=== PATIENT | female | born 1940 | race Caucasian/White ===

== ENCOUNTER 2021-06-01 14:14 | Outpatient (CLI) | payer MEDICARE, SELFPAY ==
--- NOTE | ~2021-06-01 | US_ITS ---
EXAMINATION: US art doppler w press LE BI DATE: 06/01/2021 15:27 INDICATION: Neuropathy with pain, numbness and tingling to the bilateral lower limbs. Hypercholestero lemia prior smoker. TECHNIQUE: Segmental pressures and plethysmographic and Doppler waveforms of the brachial and lower e xtremity arteries were obtained. COMPARISON: None. FINDINGS: Right and left brachial artery pressures of 167 mm Hg and 147 mm Hg, respectively, are concordant (no rmal difference <= 30 mmHg). The right high thigh pressure index is 0.56 (normal > 1.2). The left hig h thigh pressure index was unable to be obtained due to inability to occlude the vessel. The right ankle-brachial index (DAYTON) is 0.42 (normal >= 0.9-1). The right great toe-brachial index (T BI) is (normal >= 0.6-0.8). The right lower extremity segmental pressure gradients are increased betw een the right noutl-qzd-ezcf popliteal artery and both the more proximal llahz-nkr-tvhq popliteal art fuad as well as the right dorsalis pedis and posterior tibial arteries which could be due to vessel wa ll calcification and artifactual elevated pressures at the hmloo-okw-gfud popliteal artery (normal gr adients <= 20-30 mmHg between adjacent levels on the same leg or the same levels on the two legs). Ar terial waveforms are biphasic throughout the arteries of the right lower limb with broadening of the systolic peaks and delayed upstrokes at the right dorsalis pedis artery. The left DAYTON is 0.65. The left TBI is 0.41. The left lower extremity segmental pressure gradients are increased between the left vrctq-hhl-jdga popliteal artery and the left posterior tibial and dorsali s pedis arteries at the left ankle. Arterial waveforms are biphasic with brisk systolic upstrokes thr oughout. IMPRESSION: 1. Bilateral arterial occlusive disease with severely decreased right and moderately decreased left A BIs. On the right there is also severe decrease in the right high thigh pressure index suggesting sig nificant more proximal right iliac disease. Reviewed, dictated and finalized at location A. INALIST IMPRESSION: 1. Bilateral arterial occlusive disease with severely decreased right and moder ately decreased left ABIs. On the right there is also severe decrease in the ri ght high thigh pressure index suggesting significant more proximal right iliac disease.
== END 2021-06-01 14:15 | disposition home or self-care (01) ==
LOC: ANHIMG 14:18
PROVIDERS: PCP Family Medicine; Visit Provider Family Medicine
DX: G62.9 Polyneuropathy, unspecified (principal); Z95.2 Presence of prosthetic heart valve; G89.29 Other chronic pain; M79.604 Pain in right leg; M79.605 Pain in left leg; R09.89 Other specified symptoms and signs involving the circulatory and respiratory systems; I73.9 Peripheral vascular disease, unspecified
CPT/HCPCS: 93923

== ENCOUNTER 2021-08-23 13:16 | Emergency (ER) | payer OTHER, SELFPAY ==
[2021-08-23] VITALS (11 sets, daily range): BP systolic 109–163; BP diastolic 51–97; PULSE 77–92; RESP 15–23; TEMP 36.1–36.2; O2SAT 93–100
--- NOTE | ~2021-08-23 | XR_ITS ---
EXAMINATION: XR chest 1V portable INDICATION: Shortness of breath TECHNIQUE: Portable AP chest at 1754 hours COMPARISON: None available FINDINGS: There are minimal airspace opacities of the lung bases. There is no pleural effusion or pne umothorax. Cardiomegaly is noted. A dual-lead cardiac pacemaker of the left chest wall ends with lead s in expected locations. Median sternotomy wires and mediastinal surgical clips are seen, likely from prior coronary artery bypass grafting. Vertebroplasty change is noted in the L3 vertebral body. IMPRESSION: 1. Minimal bibasilar airspace opacities, consistent with atelectasis versus pneumonia. Reviewed, dictated and finalized at location F. TS FITNESS AND WELLNESS DIRECTOR IMPRESSION: 1. Minimal bibasilar airspace opacities, consistent with atelectasis versus pne umonia.
--- NOTE | ~2021-08-23 | CT_ITS ---
EXAMINATION: CTA chest PE protocol DATE: 08/23/2021 19:40 INDICATION: Shortness of breath TECHNIQUE: Computed tomography angiography (CTA) of the chest was performed with 100 mL Omnipaque-350 intravenous contrast timed to evaluate the pulmonary arteries. Coronal maximum intensity projection 3D-reconstructions were created by the technologist. The dose-length product (DLP) was 213.22 mGy-cm. Automated exposure control and iterative reconstruction technique were employed. COMPARISON: None. FINDINGS: The pulmonary arteries are well-opacified. No pulmonary embolism is identified. There is se cherry emphysema. The lungs are free of acute opacities. There appears to be a small amount of mucus in the trachea. There is no pleural effusion or pneumothorax. Cardiomegaly is noted. A dual-lead cardia c pacemaker of the left chest wall ends with leads in expected locations. There is a small sliding hi atal hernia. There is mild thoracic spondylosis. IMPRESSION: 1. No pulmonary embolism or acute cardiopulmonary abnormality. 2. Severe emphysema. Reviewed, dictated and finalized at location F. E PROMOTION ANALYST
--- NOTE | 2021-08-23 14:51 | PC.NURSE ---
Patients visitor in to dept and up to desk asking for wait times, how many people are ahead, and if he should take her somewhere else. I informed this gentleman that I am unable to provide any of that information.
--- NOTE | 2021-08-23 17:05 | ECG_ITS ---
Measurements Intervals [place] Rate: 73 P: 119 ID: [id number] QRS: 49 QRSD: 93 T: 4 QT: 389 QTc: 429 Interpretive Statements SINUS RHYTHM WITH FIRST DEGREE AV BLOCK MINIMAL Q WAVES- INFERIOR LEADS BASELINE ARTIFACT- I, II, III, AVR, AVL, AVF, V1-V6 ABNORMAL ECG Electronically Signed On 08-23-2021 21:14:22 CYLINDER WORKER by Brock Woods D.O.
--- NOTE | 2021-08-23 17:15 | ED.SOB ---
HPI - SOB/Dyspnea General Chief Complaint: Shortness of Breath/Dyspnea Stated Complaint: shortness of breath Time Seen by Provider: 08/23/21 17:05 Source: patient and RN notes reviewed Mode of arrival: ambulatory Limitations: no limitations History of Present Illness HPI Narrative: This is an 81 year old female with history of pacemaker, valvular disease s/p aortic mechanical valve replacement who presents for evaluation of shortness of breath. She developed shortness of breath 3 days ago. She first noticed shortness of breath 3 days ago when she got up to get something to drink. She continues to feel short of breath and it is worse with exertion. She denies chest pain, cough, leg swelling, nausea, vomiting or dizziness. She takes coumadin for her mechanical valve and she has been therapeutic. Related Data Allergies Allergy/AdvReac Type Severity Reaction Status Date / Time No Known Allergies Allergy Verified 08/23/21 20:08 Review of Systems Review of Systems: All systems reviewed & are unremarkable except as noted in HPI and below Constitutional: Constitutional: Denies chills, Denies fever(s) and Denies weakness ENT: Reports nasal congestion and Denies sore throat Cardiovascular: Cardiovascular: Denies chest pain Respiratory: Respiratory: Denies cough, Reports dyspnea and Denies wheezing Gastrointestinal: Gastrointestinal: Denies abdominal pain, Denies diarrhea, Denies nausea and Denies vomiting [facility] Past Medical History Medical History (Updated 08/23/21 @ 22:47 by Amrita Jaramillo MD) H/O valvular heart disease Pacemaker Peripheral vascular disease Surgical History Surgical History (Updated 08/23/21 @ 22:46 by Amrita Jaramillo MD) Heart valve replaced Social History Social History (Updated 08/23/21 @ 18:31 by Amrita Jaramillo MD) Smoking status: Never smoker Exam Const: General: no acute distress and alert Orientation/consciousness: patient oriented x3 Eyes: EOM: EOMs intact bilaterally Chest: Chest palpation & inspection: normal inspection of the chest Resp: Effort & Inspection: normal respiratory effort and no retractions Auscultation: clear to auscultation bilaterally Other: able to speak in complete sentences Cardio: Rate: regular rate Rhythm: regular rhythm Heart sounds: Murmur heart sound present GI: GI Palp: Yes Soft to palpation, No Tenderness to palpation present (GI) and No Guarding due to palpation present (GI) Auscultation: normal bowel sounds Skin: General skin exam: normal color Rashes: no rashes Neuro: General: patient oriented x3, moves all extremities and CN's II-XI intact bilaterally Extrem: General: normal to inspection Psych: Mental Status: mental status grossly normal Affect: normal affect Course Reevaluation(s) Reevaluation #1: PAtient presented with shortness of breath. She was able to ambulate and maintain oxygen saturation of 100% on room air. CT shows severe emphysema. I have discussed with patient and discussed she will need to see PCP and retail asset protection specialist. She is not requiring oxygen and she is not having chest pain EKG changes. Date: 08/23/21 Time: 20:05 Vital Signs Vital signs: Vital Signs Temperature 97.2 F L 08/23/21 13:31 Pulse Rate 85 08/23/21 13:31 Respiratory Rate 18 08/23/21 13:31 Blood Pressure 109/54 L 08/23/21 13:31 Pulse Oximetry 100 08/23/21 13:31 Temperature 97 F L 08/23/21 17:09 Pulse Rate 88 08/23/21 20:40 Respiratory Rate 16 08/23/21 20:40 Blood Pressure 153/54 H 08/23/21 20:40 Pulse Oximetry 99 08/23/21 20:40 MDM - SOB/Dyspnea Lab Data Attestation: I reviewed the patient's lab results. Result diagrams: 08/23/21 17:38 08/23/21 17:38 Labs: Lab Results 08/23/21 08/23/21 08/23/21 Range/Units 17:38 17:38 17:38 WBC 9.6 (4.5-10.0) K/mm3 RBC 4.04 L (4.2-5.4) M/mm3 Hgb 13.2 (12.0-15.0) g/dL Hct 39.4 (37.0-47.0) % MCV 9
[2021-08-23 17:51] LABS: Basophils Absolute Auto 0.1 K/mm3 (0.0-0.1); Basophils Percent Auto 0.6 % (0.2-1.2); Eosinophils Absolute Auto 0.4 K/mm3 (0-0.3); Eosinophils Percent Auto 3.6 % (0-4.4); Hematocrit 39.4 % (37.0-47.0); Hemoglobin 13.2 g/dL (12.0-15.0); Immature Granulocyte Absolute 0.03 K/mm3 (0.00-0.031); Immature Granulocyte Percent A 0.3 % (0-0.5); Lymphocytes Absolute Auto 1.38 K/mm3 (0.9-3.2); Lymphocytes Percent Auto 14.3 % (18.3-44.2); Mean Corpuscular HGB Conc 33.5 g/dl (32-36); Mean Corpuscular Hemoglobin 32.7 pg (26-34); Mean Corpuscular Volume 97.5 fl (80-100); Mean Platelet Volume 9.3 fl (7.4-10.4); Monocytes Absolute Auto 0.9 K/mm3 (0.1-0.6); Monocytes Percent Auto 9.1 % (2.6-8.5); Neutrophils Absolute Auto 6.9 K/mm3 (1.3-6.7); Neutrophils Percent Auto 72.1 % (45.5-73.1); Platelet Count Result 314 k/mm3 (150-375); Red Blood Count 4.04 M/mm3 (4.2-5.4); Red Cell Distribution Width 12.4 % (11.5-14.5); White Blood Count 9.6 K/mm3 (4.5-10.0)
[2021-08-23 18:01] LABS: INR 2.5
[2021-08-23 18:02] LABS: Partial Thromboplastin Time 44.7 SECONDS (22.3-36.8)
[2021-08-23 18:17] LABS: Alanine Aminotransferase 16 U/L (4-35); Albumin Level 4.6 g/dL (3.5-5.1); Alkaline Phosphatase 77 U/L (38-126); Anion Gap 8 mmol/L (8-16); Aspartate Amino Transferase 29 U/L (14-36); Bilirubin,Total 0.8 mg/dL (0.2-1.3); Blood Urea Nitrogen 19 mg/dL (7-17); Calcium 9.9 mg/dL (8.4-10.2); Carbon Dioxide 26 mmol/L (22-30); Chloride 102 mmol/L (98-107); Estimated CRCL calculation 32 ml/min; Estimated Glomerular Filt Rate 53; Glucose 101 mg/dL (65-110); Potassium 3.8 mmol/L (3.4-5.0); Sodium 136 mmol/L (137-145)
[2021-08-23 18:28] LABS: NT Pro B Type Natriuretic Pept 1180 pg/mL (5-100); Troponin I < 0.012 ng/mL (0.000-0.034)
[2021-08-26 07:50] LABS: Alveolar/Arterial O2 Gradient 29.6 mmHg; Carboxyhemoglobin 0.5 % THb (0-2.0); Fractional Inspired Oxygen 21 %; HCO3 ABG 19.7 mEq/l (22.0-26.0); Methemoglobin ABG 0.3 %THb (0-1.5); Oxygen Content ABG 18.2 %vol (16.0-22.0); Oxygen Saturation ABG 97.6 % (95.0-100.0); Oxyhemoglobin 95.7 % THb (90.0-100.0); PCO2 ABG 25.9 mmHg (35.0-45.0); PO2 ABG 89.1 mmHg (80.0-100.0); PO2 FiO2 Ratio Arterial Blood 4.24 %; Reduced Hemoglobin 3.5 %THb (0-5.0); Total Hemoglobin 13.5 g/dL (12.0-18.0); pH ABG 7.499 (7.350-7.450)
[2021-08-26 07:51] LABS: Device ROOM AIR
== END 2021-08-23 20:19 | disposition home or self-care (01) ==
PROVIDERS: Emergency Medicine; Emergency Provider General Practice; PCP Student in an Organized Health Care Education/Training Program
DX: J43.8 Other emphysema (principal); R06.00 Dyspnea, unspecified; I38 Endocarditis, valve unspecified; I73.9 Peripheral vascular disease, unspecified; Z95.0 Presence of cardiac pacemaker; Z95.2 Presence of prosthetic heart valve; I44.0 Atrioventricular block, first degree
CPT/HCPCS: 36415; 36600; 71045; 71275; 80053; 82375; 82805; 83050; 83880; 84484; 85025; 85610; 85730; 93005; 99284; Q9967

== ENCOUNTER 2021-09-18 13:29 | Emergency (ER) | payer OTHER, SELFPAY ==
[2021-09-18] VITALS (10 sets, daily range): BP systolic 154–186; BP diastolic 61–95; PULSE 65–94; RESP 15–26; TEMP 36.6; O2SAT 96–100
--- NOTE | ~2021-09-18 | CT_ITS ---
EXAMINATION: CT brain wo con DATE: 09/18/2021 14:51 INDICATION: Dizziness. Speech difficulty. Confusion. TECHNIQUE: Computed tomography (CT) of the head was performed without intravenous contrast. The mA wa s adjusted according to patient size. Iterative reconstruction technique was employed. Exam dose: 90 8.00 mGy-cm total exam DLP. COMPARISON: None FINDINGS: Examination is mildly limited by motion artifact. Bilateral vertebral artery calcification. Bilateral carotid siphon and supraclinoid internal carotid artery calcifications. There is nonspecific diminished attenuation of the cerebral white matter, like ly due to chronic small vessel ischemic changes. No intracranial mass lesion or hemorrhage or cerebrovascular accident is detected. No midline shift o r mass effect effect. No subdural or epidural hematoma. No fracture or bone destruction of the cranial vault is detected. Included paranasal sinuses and mast oid air cells are unremarkable. IMPRESSION: Cerebral atherosclerosis and chronic small vessel ischemic changes of cerebral white mat ter No acute intracranial finding is noted. Hyperacute nonhemorrhagic cerebrovascular accident may not be detected by CT. Reviewed, dictated and finalized at Location [facility]. Reviewed, dictated and finalized at location A. IMPRESSION: Cerebral atherosclerosis and chronic small vessel ischemic changes of cerebral white matter No acute intracranial finding is noted. Hyperacute nonhemorrhagic cerebrovascular accident may not be detected by CT.
--- NOTE | ~2021-09-18 | CT_ITS ---
EXAMINATION: CTA chest PE protocol DATE: 09/18/2021 16:49 INDICATION: Shortness of breath for 2 weeks TECHNIQUE: Computed tomography angiography (CTA) of the chest was performed with 100 mL Omnipaque-350 intravenous contrast timed to evaluate the pulmonary arteries. Coronal maximum intensity projection 3D-reconstructions were created by the technologist. Automated exposure control and iterative reconst ruction technique were employed. Exam dose: 252.61 mGy-cm total exam DLP. COMPARISON: 09/18/2021 portable AP chest 08/23/2021 CT pulmonary scan, reported negative for pulmonary embolism FINDINGS: The examination is limited due to motion, with suboptimal evaluation of the peripheral pulm onary arteries. There is moderate contrast opacification of the central pulmonary arteries without ev idence of central pulmonary embolus. Left-sided dual-lead pacemaker device with leads in right atrium and right ventricle. There is extensive calcification of the thoracic aorta, great vessels and coronary arteries. Status post sternotomy and aortic valve replacement. Heart size is within normal range. No pericardial or pleural effusion. Prominent emphysematous changes of the lungs. No pulmonary infiltrate or consolidation. Normal morphology of the adrenal glands. Small sliding hiatal hernia. Status post vertebroplasty at mild L2 compression fracture IMPRESSION: No central pulmonary embolus COPD Status post sternotomy and aortic valve replacement Small sliding hiatal hernia Status post vertebroplasty at L2 compression fracture Reviewed, dictated and finalized at Location [facility]. Reviewed, dictated and finalized at location A.
--- NOTE | ~2021-09-18 | XR_ITS ---
XR chest 1V portable 09/18/2021 14:21 Indication: Cough and dizziness Procedure: AP portable chest Comparison: 08/23/2021 Findings: Status post median sternotomy for CABG. Pacemaker leads are stable. Borderline heart size. No focal air space disease, pulmonary edema, pleural effusion or suspected pneumothorax. The lungs ar e hyperinflated which is consistent with, but not diagnostic of chronic obstructive pulmonary disease . Impression: 1: No acute cardiopulmonary disease. Reviewed, dictated and finalized at location A. Impression: 1: No acute cardiopulmonary disease.
--- NOTE | 2021-09-18 14:05 | ECG_ITS ---
Measurements Intervals [place] Rate: 70 P: 83 RI: 206 QRS: 34 QRSD: 96 T: 53 QT: 398 QTc: 431 Interpretive Statements SINUS RHYTHM BORDERLINE FIRST-DEGREE AV BLOCK BORDERLINE ECG COMPARED TO ECG 08/23/2021 17:41:39 NO SIGNIFICANT CHANGES Electronically Signed On 09-18-2021 15:26:38 CDT by Delta Sánchez M.D.
--- NOTE | 2021-09-18 14:27 | ED.SOB ---
HPI - SOB/Dyspnea General Chief Complaint: Shortness of Breath/Dyspnea Stated Complaint: SOB Time Seen by Provider: 09/18/21 13:54 Source: RN notes reviewed History of Present Illness HPI Narrative: Patient presents emergency department from home for shortness of breath. Patient states he has been having intermittent shortness of breath for the past 2 weeks. States that shortness of breath appears to be worse with activity and movement improved with rest he also notes intermittent dizziness where she feels like the room is spinning states that currently she does not have any dizziness she denies any fevers or chills, chest pain, abdominal pain, nausea or vomiting, numbness or tingling in the extremities or any other symptoms. Denies any cough Related Data Allergies Allergy/AdvReac Type Severity Reaction Status Date / Time No Known Allergies Allergy Verified 08/23/21 20:08 Review of Systems Review of Systems: Gen.: Denies fevers or chills Eyes: Denies eye pain or visual change ENT: Denies congestion Respiratory: Denies shortness of breath or cough CV: Denies chest pain or palpitations GI: Denies abdominal pain nausea, emesis or diarrhea Musculoskeletal: Denies back pain or muscle pain Neuro: Denies numbness, tingling, weakness or focal weakness Skin: Denies rash Except as documented, all other systems reviewed and negative [facility] Past Medical History Medical History H/O valvular heart disease Pacemaker Peripheral vascular disease Surgical History Surgical History (Updated 08/23/21 @ 22:46 by Amrita Jaramillo MD) Heart valve replaced Social History Social History Smoking status: Never smoker Exam Narrative: APPEARANCE: Anxious in appearance, nontoxic, resting in bed EYES: EOMI HEENT: Normocephalic, atraumatic, OMM RESPIRATORY: No respiratory distress Clear to auscultation bilaterally with no rhonchi wheezing or rales. CARDIOVASCULAR: Regular rate and rhythm without murmurs rubs or gallops. ABDOMINAL: Soft, nontender, nondistended, no rebound or guarding MUSCULOSKELETAl: Moves all extremities. No clubbing, cyanosis or edema. NEURO: Awake and alert. Following commands, speech normal, no focal deficits SKIN:: Warm, dry. No rashes lesions or abrasions PSYCHIATRIC: Normal affect/mood, Course Course Emergency Course: Patient states she is feeling much better at this time able to get up and ambulate in ED with pulse ox staying in the 90s no difficulty Reviewed old records the patient was seen for similar back in August with negative work-up Discussed with patient results of workup and diagnosis. Discussed need for follow-up with primary care, proper use of medication, and reasons to return to the emergency department. Patient understands and agrees to current treatment plan Vital Signs Vital signs: Vital Signs Temperature 97.8 F 09/18/21 13:47 Pulse Rate 65 09/18/21 13:47 Respiratory Rate 15 09/18/21 13:47 Blood Pressure 154/61 H 09/18/21 13:47 Pulse Oximetry 100 09/18/21 13:47 Temperature 97.8 F 09/18/21 13:47 Pulse Rate 66 09/18/21 13:56 Respiratory Rate 15 09/18/21 13:47 Blood Pressure 154/61 H 09/18/21 13:47 Pulse Oximetry 100 09/18/21 14:03 MDM - SOB/Dyspnea MDM Narrative Medical decision making narrative: Patient has dyspnea of unclear etiology. No wheezing on clinical exam. CTA shows no signs of pulmonary embolism pneumonia or pulmonary edema. Patient?s EKG is without high-risk changes. Oxygen saturations are normal. Patient is felt to be a reasonable candidate for additional evaluation as an outpatient.. Patient with a history of COPD suspect that this is a component of her symptoms discussed her need for follow-up with her primary care physician Lab Data Result diagrams: 09/18/21 14:21 09/18/21 14:21 Labs: Lab Results
[2021-09-18 14:32] LABS: Basophils Percent Auto 0.4 % (0.2-1.2); Eosinophils Absolute Auto 0.1 K/mm3 (0-0.3); Eosinophils Percent Auto 0.6 % (0-4.4); Hematocrit 41.2 % (37.0-47.0); Hemoglobin 13.8 g/dL (12.0-15.0); Immature Granulocyte Absolute 0.05 K/mm3 (0.00-0.031); Immature Granulocyte Percent A 0.5 % (0-0.5); Lymphocytes Absolute Auto 0.96 K/mm3 (0.9-3.2); Lymphocytes Percent Auto 8.8 % (18.3-44.2); Mean Corpuscular HGB Conc 33.5 g/dl (32-36); Mean Corpuscular Hemoglobin 32.7 pg (26-34); Mean Corpuscular Volume 97.6 fl (80-100); Mean Platelet Volume 9.5 fl (7.4-10.4); Monocytes Absolute Auto 0.3 K/mm3 (0.1-0.6); Neutrophils Absolute Auto 9.5 K/mm3 (1.3-6.7); Neutrophils Percent Auto 86.7 % (45.5-73.1); Platelet Count Result 293 k/mm3 (150-375); Red Blood Count 4.22 M/mm3 (4.2-5.4); Red Cell Distribution Width 12.7 % (11.5-14.5); White Blood Count 10.9 K/mm3 (4.5-10.0)
[2021-09-18 14:42] LABS: Alanine Aminotransferase 19 U/L (4-35); Albumin Level 4.6 g/dL (3.5-5.1); Alkaline Phosphatase 70 U/L (38-126); Anion Gap 8 mmol/L (8-16); Aspartate Amino Transferase 34 U/L (14-36); Bilirubin,Total 0.6 mg/dL (0.2-1.3); Blood Urea Nitrogen 17 mg/dL (7-17); Calcium 9.7 mg/dL (8.4-10.2); Carbon Dioxide 26 mmol/L (22-30); Chloride 104 mmol/L (98-107); Estimated CRCL calculation 31 ml/min; Estimated Glomerular Filt Rate 60; Glucose 116 mg/dL (65-110); Potassium 4.3 mmol/L (3.4-5.0); Prothrombin Time 22.1 Seconds (11.1-14.7); Sodium 138 mmol/L (137-145)
[2021-09-18 14:54] LABS: NT Pro B Type Natriuretic Pept 2220 pg/mL (5-100); Troponin I 0.013 ng/mL (0.000-0.034)
[2021-09-18 17:26] LABS: Add Urine Microscopic? YES; Appearance Urine Cloudy (Clear); Bilirubin Urine Negative (Negative); Blood Urine Negative (Negative); Color Urine Yellow (Yellow); Glucose Urine UA Negative (Negative); Ketones Urine Negative (Negative); Leukocyte Esterase Ur Negative LEU/UL (Negative); Nitrate Urine Negative (Negative); Protein Urine Negative (Negative); RBC Urine 0-2 /hpf (0-2); Squamous Epithelial Cell Urine Rare /hpf (Few); Urobilinogen Urine Negative mg/dL (<2.0); WBC Urine 0-3 /hpf
--- NOTE | 2021-09-18 17:40 | PC.NURSE ---
ambulated pt. to the bathroom, pulse ox was 92% and pulse was 88
--- NOTE | 2021-09-18 18:18 | PC.NURSE ---
Transliterator called patient's son and left message. Transliterator trying to arrange transport for patient home. Patient's son is John, phone number is [phone]
--- NOTE | 2021-09-18 18:45 | PC.NURSE ---
Annual Greenhouse Manager placed second call to patient's son. Patient's son did not answer.
--- NOTE | 2021-09-18 18:50 | PC.NURSE ---
Patient's son returned business writer's phone call and reported he is on his way to pick her up.
== END 2021-09-18 19:00 | disposition home or self-care (01) ==
PROVIDERS: Emergency Provider Emergency Medicine; PCP Student in an Organized Health Care Education/Training Program
DX: J44.9 Chronic obstructive pulmonary disease, unspecified (principal); I38 Endocarditis, valve unspecified; I73.9 Peripheral vascular disease, unspecified; Z95.0 Presence of cardiac pacemaker; Z95.2 Presence of prosthetic heart valve; R94.31 Abnormal electrocardiogram [ECG] [EKG]; I67.2 Cerebral atherosclerosis; K44.9 Diaphragmatic hernia without obstruction or gangrene
CPT/HCPCS: 36415; 70450; 71045; 71275; 80053; 81001; 83880; 84484; 85025; 85610; 85730; 93005; 99284; Q9967

== ENCOUNTER 2021-10-11 04:42 | Inpatient (IN) | payer OTHER, SELFPAY ==
[2021-10-11] VITALS (34 sets, daily range): BP systolic 54–160; BP diastolic 22–73; PULSE 86–133; RESP 16–100; TEMP 36.4; O2SAT 90–100
--- NOTE | 2021-10-11 | ECHO_ITS ---
Patient Info Name: Priti Jaramillo Age: 81 years : 1940 Gender: Female Technical Quality: Good Exam Date: 10/11/2021 6:44 AM Exam Location: [facility] Patient Status: Inpatient Admit Date: 10/11/2021 Staff Ordering Physician: Hans Pedroza MD Household Appliance Repairer: Sasha Rangel RDCS Attending Provider: Hans Pedroza MD Exam Type: CA echo transesophageal Summary 1. The mechanical aortic valve is noted. 2. There is severe regurgitation of the mechanical aortic valve. 3. Incomplete closure and Decreased mobility of the mechanical aortic valve leaflets. 4. 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 Left Ventricle Left ventricular chamber dimension is normal. Left ventricular systolic function is mildly reduced with an ejection fraction by Biplane Method of Discs of 40 %. There is mildly increased left ventricular wall thickness. Right Ventricle Right ventricular chamber dimension is normal. Right ventricular systolic function is normal. Left Atria Left atrial chamber dimension is mildly enlarged. Right Atria Right atrial chamber dimension is normal. Atrial Appendage Left atrial appendage is enlarged with no visible thrombus . Aortic Valve The mechanical aortic valve is noted. There is severe regurgitation of the mechanical aortic valve. Incomplete closure and Decreased mobility of the mechanical aortic valve leaflets. 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 Pulmonic Valve The pulmonic valve is normal. There is no pulmonic valve stenosis. There is no pulmonic regurgitation. Mitral Valve The mitral valve has normal leaflets. There is no mitral valve stenosis. There is mild mitral valve regurgitation. Tricuspid Valve The tricuspid valve leaflets are normal. There is no significant tricuspid valve stenosis. There is no tricuspid valve regurgitation. No pulmonary hypertension, estimated pulmonary arterial systolic pressure is Empty. Pericardium/Pleural The pericardium appears normal. There is no pericardial effusion. Aortic Valve Name Value Normal AV Doppler AV Peak Velocity 395 cm/s AV Peak Gradient 62 mmHg AV Mean Gradient 42 mmHg AV VTI 108 cm AV Area (Cont Eq VTI) 1.0 cm2 >=3.0 Ventricles Name Value Normal LV Fractional Shortening/Ejection Fraction 2D/MM LV EF (BP MOD) 40 % 54-74 Report Signatures
--- NOTE | ~2021-10-11 | XR_ITS ---
EXAMINATION: XR abdomen NG/feed tube insert EXAM DATE: 10/11/2021 08:42 INDICATION: og tube insertion TECHNIQUE: Frontal projection(s) of the abdomen for interpretation. There is no prior study for ron hood. FINDINGS: Feeding tube tip and side-port project over expected location of gastric body. L2 methylme thacrylate injection. There appears to be some contrast in renal calyces, and renal contours rather well visualized, correlate with any recent contrast exam (last study at this institution was on 2021). Nonobstructive upper abdominal bowel gas pattern. There are bony degenerative changes. IMPRESSION: 1. Feeding tube in position. 2. Dense kidneys with some calyceal contrast suspected. Has there been any injection more recent kishan n 09/18? If not, check renal function, consider possibility of contrast-induced or other nephropathy. Reviewed, dictated and finalized at location B. IMPRESSION: 1. Feeding tube in position. 2. Dense kidneys with some calyceal contrast suspected. Has there been any inj ection more recent than 09/18? If not, check renal function, consider possibility of contrast-induced or other nephropathy.
--- NOTE | ~2021-10-11 | XR_ITS ---
EXAMINATION: XR chest ET placement EXAM DATE: 10/11/2021 08:42 INDICATION: ET placement . TECHNIQUE: Portable AP frontal chest x-ray was obtained. Comparison is made to prior examination from earlier same day. FINDINGS: There is been interval intubation, endotracheal tube is in position about 3 cm above the c levi. There is a nasogastric tube seen with tip collimated off the study, but below the left hemidia phragm. There is a dual lead pacemaker/AICD seen with leads projecting over the expected locations of the right atrial appendage and right ventricle. There is developing bilateral perihilar predominant airspace disease, distribution could indicate pul monary edema. Pneumonia not excludable. There are no sizable pleural effusions. There is no pneumot horax suspected. The cardiomediastinal silhouette is prominent but magnified on this AP technique. The bones and soft tissues are unremarkable. IMPRESSION: 1. Tubes in position. 2. Developing bilateral edema or possibly pneumonia. Reviewed, dictated and finalized at location B.
--- NOTE | ~2021-10-11 | XR_ITS ---
EXAMINATION: XR chest 1V portable INDICATION: Chest pain TECHNIQUE: Portable AP chest at 0525 hours COMPARISON: 09/18/2021 FINDINGS: The lungs are free of acute opacities. There is no pleural effusion or pneumothorax. Cardio megaly is noted. A dual-lead cardiac pacemaker of the left chest wall ends with leads in expected loc ations. Vertebroplasty change is noted in the lumbar spine. IMPRESSION: 1. No acute cardiopulmonary abnormality. Reviewed, dictated and finalized at location A.
--- NOTE | 2021-10-11 04:43 | ECG_ITS ---
Measurements Intervals [place] Rate: 91 P: 80 MA: 190 QRS: 61 QRSD: 92 T: 202 QT: 355 QTc: 438 Interpretive Statements SINUS RHYTHM ST DEVIATION AND MODERATE T-WAVE ABNORMALITY, CONSIDER LATERAL ISCHEMIA [-0.1+ mV T WAVE IN I/aVL/V5/V6] ST DEVIATION AND MODERATE T-WAVE ABNORMALITY, CONSIDER INFERIOR ISCHEMIA [-0.1+ mV T WAVE IN II/aVF] COMPARED TO ECG 09/18/2021 15:00:[address] SEGMENT DEPRESSION Electronically Signed On 10-11-2021 15:27:32 CDT by Nixon Cochran M.D.
--- NOTE | 2021-10-11 04:50 | PC.NURSE ---
PT INCONTINENT OF LARGE AMOUNT OF STOOL. PT CLEANED UP AND LINENS CHANGED.
--- NOTE | 2021-10-11 04:55 | PC.NURSE ---
1 LITER NS INFUSING TO L AC
[2021-10-11 05:03] LABS: Basophils Absolute Auto 0.1 K/mm3 (0.0-0.1); Basophils Percent Auto 0.4 % (0.2-1.2); Eosinophils Absolute Auto 0.3 K/mm3 (0-0.3); Eosinophils Percent Auto 2.3 % (0-4.4); Hematocrit 36.1 % (37.0-47.0); Hemoglobin 11.8 g/dL (12.0-15.0); Immature Granulocyte Absolute 0.07 K/mm3 (0.00-0.031); Immature Granulocyte Percent A 0.5 % (0-0.5); Lymphocytes Absolute Auto 2.74 K/mm3 (0.9-3.2); Lymphocytes Percent Auto 20.3 % (18.3-44.2); Mean Corpuscular HGB Conc 32.7 g/dl (32-36); Mean Corpuscular Hemoglobin 33.1 pg (26-34); Mean Corpuscular Volume 101.1 fl (80-100); Mean Platelet Volume 9.5 fl (7.4-10.4); Monocytes Absolute Auto 0.7 K/mm3 (0.1-0.6); Monocytes Percent Auto 5.1 % (2.6-8.5); Neutrophils Absolute Auto 9.6 K/mm3 (1.3-6.7); Neutrophils Percent Auto 71.4 % (45.5-73.1); Platelet Count Result 266 k/mm3 (150-375); Red Blood Count 3.57 M/mm3 (4.2-5.4); Red Cell Distribution Width 12.9 % (11.5-14.5); White Blood Count 13.5 K/mm3 (4.5-10.0)
[2021-10-11] MEDS: TICAGRELOR 90 MG TABLET 180 MG (05:03)
--- NOTE | 2021-10-11 05:05 | ED.CHESTPAIN ---
HPI - Chest Pain General Chief Complaint: Chest Pain Stated Complaint: chest and left arm pain since 8pm Time Seen by Provider: 10/11/21 04:47 Source: patient, EMS and RN notes reviewed Mode of arrival: EMS Limitations: no limitations History of Present Illness HPI narrative: 81-year-old female with history of CABG in 1988 presented to the emerge department for evaluation of substernal chest pain that started at 8 PM tonight. Patient does report associated nausea and diaphoresis. Patient was hypotensive upon arrival. EKG was significantly different than her EKG from 09/18/21 and was concerning for a posterior CA. STEMI alert was called. Case was discussed with cardiology and patient was ultimately transferred to the [facility]. Prior to going to the [facility] patient was treated with heparin and Brilinta. Due to her low blood pressure metoprolol and nitro were held. Patient did require 2 L of IV fluid prior to going to the [facility]. Related Data Home Medications Medication Instructions Recorded Confirmed evolocumab [Repatha Pushtronex] mg SUBCUT 10/11/21 ezetimibe mg 10/11/21 jggsgmtriub-ohzmjeiax-rqzruook INHALATION 10/11/21 [Trelegy Ellipta] furosemide 10/11/21 meclizine mg 10/11/21 warfarin 10/11/21 Allergies Allergy/AdvReac Type Severity Reaction Status Date / Time Uzbmuha-RRV-RdF Reductase AdvReac Joint Pain Verified 10/11/21 05:05 Inhibitor Review of Systems Review of Systems: CONSTITUTIONAL: Diaphoresis EYES: Denies visual changes, redness, or discharge. ENT: Denies rhinorrhea, congestion, sore throat, or otalgia. CARDIOVASCULAR: Chest pain and tachycardia RESPIRATORY: Denies cough or dyspnea. GASTROINTESTINAL: Denies abdominal pain, nausea, vomiting, or diarrhea. SKIN: Denies rash or itching. MUSCULOSKELETAL: Denies back pain, joint pain, or myalgia. NEUROLOGIC: Denies headache, numbness, or weakness. All systems reviewed & are unremarkable except as noted in HPI and below PMFSH Past Medical History Medical History H/O valvular heart disease Pacemaker Peripheral vascular disease Surgical History Surgical History (Updated 08/23/21 @ 22:46 by Amrita Jaramillo MD) Heart valve replaced Social History Social History Smoking status: Never smoker Exam Narrative: APPEARANCE: ill appearing HEAD: normocephalic, atraumatic. EYES: PERRLA/EOMI, conjunctivae clear. NECK: Supple. No adenopathy, no masses. RESPIRATORY: Airway patent, respirations nonlabored. Clear to auscultation bilaterally, no rales, rhonchi, wheezing. CARDIOVASCULAR: Regular rate and rhythm without murmurs rubs or gallops. ABDOMINAL: Soft, nontender, nondistended, normal bowel sounds MUSCULOSKELETAL: Moves all extremities. Strength/ROM intact, No edema, No calf tenderness. NEURO: Alert. Cranial nerves II through XII intact. SKIN: Warm, dry. Normal Color Course Course Emergency Course: Dr Pedroza was paged for concern for an acute STEMI I was called to the [facility] to intubate the patient because she needs a transesophageal echo. Patient was preoxygenated using the BiPAP and bag valve mask. Patient was RSI'd with succinyl and etomidate. Patient was intubated using the glide scope on 1 attempt. Tube was visualized passing through the cords, moisture on inside of tube and good color change on CO2 detector, equal breath sounds BL. Dr. Mark ordered fentanyl and Versed for sedation. OG tube will be placed after echo. Dr Mark stated he would get a confirmatory CXR. Vital Signs Vital signs: Vital Signs Temperature 97.6 F 10/11/21 04:39 Pulse Rate 91 10/11/21 04:39 Respiratory Rate 29 H 10/11/21 04:39 Blood Pressure 63/47 L 10/11/21 04:39 Pulse Oximetry 95 10/11/21 04:39 Temperature 97.6 F 10/11/21 04:39 Pulse Rate 116 H 10/11/21 05:33 Respiratory Rate 24 H 10/11/21 05:33 Bl
[2021-10-11 05:13] LABS: Prothrombin Time 13.2 Seconds (11.1-14.7)
[2021-10-11 05:14] LABS: Alanine Aminotransferase 13 U/L (4-35); Albumin Level 3.9 g/dL (3.5-5.1); Alkaline Phosphatase 61 U/L (38-126); Anion Gap 8 mmol/L (8-16); Aspartate Amino Transferase 30 U/L (14-36); Bilirubin,Total 0.5 mg/dL (0.2-1.3); Blood Urea Nitrogen 16 mg/dL (7-17); Calcium 8.8 mg/dL (8.4-10.2); Carbon Dioxide 21 mmol/L (22-30); Chloride 109 mmol/L (98-107); Estimated CRCL calculation 24 ml/min; Estimated Glomerular Filt Rate 43; Glucose 141 mg/dL (65-110); Lipase 70 U/L (23-300); Partial Thromboplastin Time 26.9 SECONDS (22.3-36.8); Potassium 3.9 mmol/L (3.4-5.0); Sodium 138 mmol/L (137-145)
--- NOTE | 2021-10-11 05:14 | PC.NURSE ---
2ND LITER NS INFUSING TO SECOND IV
[2021-10-11] MEDS: SODIUM CHLORIDE 0.9% IV 1,000 ML 999 ML (05:15)
[2021-10-11 05:27] LABS: Troponin I 0.608 ng/mL (0.000-0.034)
--- NOTE | 2021-10-11 05:40 | PC.NURSE ---
PT TAKEN TO MEDICAL CENTER REPRESENTATIVE EMERGENTLY BY MEDICAL CENTER REPRESENTATIVE STAFF.
--- NOTE | 2021-10-11 07:14 | PM.CNCAR ---
Assessment and Plan Additional Plan Cardiogenic shock, ST T wave changes was concerning for ACS, but found to have mechanical valve malfunction with sever and AI. 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 s/p LHC in left FAST FOOD CREW LEAD (US and fluoroscopy guided) ons stick. s/p rt CFV access with US guidance one stick. s/p ALEX with no bleeding. Plan Discussed finding of cardiogenic shock and mechanical valve malfunction in this case with Cardiac surgeons Dr Wolf in [facility] and Dr Pierce in [place]. They commented that case not candidate for emergency surgery and prognosis is grim. Recommendation to give tPA. I couldn't reach family members to find contra-indications for tPA, but because current situation is emergency and she is not candidate for emergency surgery, she is left with only option is tPA. she is in profound shock and resp failure and heparin will not be effective. After furtehr discussion with surgery team and dr Cochran in [place] decison to proceed with reduced dose tPA 20 min bolus then 30 mg over 3 hours, followed by heparin infusion no bolus. Check fibrinogen and coagulaiton profile. Cross match and hold 2 unit of blood. Sheaths sutured in place and not to be removed for 24 hours. PPI History of Present Illness History of Present Illness Consult date/time: 10/11/21 07:14 Consult reason: chest pain Reason For Visit: chest and left arm pain since 8pm Narrative: 81 Yrs old female presented with acute SOB and chest pain substernal, severe, non radiating, she was hypotensive in ER. upon my evaluation she was too short of breath to give any Hx, she was started on BiPAP. she only mentioned that she recently moved here and she had cardiac [place] 1988. no further Hx can be taken. Review of Systems Review of Systems: ROS unobtainable: Yes unobtainable due to medical condition PMFSH Past Medical History Medical History H/O valvular heart disease Pacemaker Peripheral vascular disease Surgical History Surgical History (Updated 08/23/21 @ 22:46 by Amrita Jaramillo MD) Heart valve replaced Social History Social History Smoking status: Never smoker Meds Home Medications and Allergies Home Medications Medication Instructions Recorded Confirmed Type albuterol sulfate 2 puff INHALATION QID PRN #6.7 g 08/23/21 Rx evolocumab [Repatha Pushtronex] mg SUBCUT 10/11/21 History ezetimibe mg 10/11/21 History wiekcbwxdfy-hcohkyqpu-kgxxuhoy INHALATION 10/11/21 History [Trelegy Ellipta] furosemide 10/11/21 History meclizine mg 10/11/21 History warfarin 10/11/21 History Allergies Allergy/AdvReac Type Severity Reaction Status Date / Time Utdcnbo-NQL-RoX Reductase AdvReac Joint Pain Verified 10/11/21 05:05 Inhibitor Vital Signs Vital Signs - 24 hr 10/11/21 04:39 10/11/21 04:45 10/11/21 04:55 Temperature 36.4 C Pulse Rate 91 92 Respiratory Rate 29 H Blood Pressure 63/47 L Pulse Oximetry 95 98 10/11/21 05:00 10/11/21 05:01 10/11/21 05:10 Temperature Pulse Rate 87 90 92 Respiratory Rate 29 H 30 H 16 Blood Pressure 68/41 L 66/39 L 54/22 L Pulse Oximetry 98 99 100 10/11/21 05:21 10/11/21 05:29 10/11/21 05:30 Temperature Pulse Rate 108 H 110 H Respiratory Rate 20 24 H Blood Pressure 87/51 L 105/50 L Pulse Oximetry 97 98 98 10/11/21 05:33 Temperature Pulse Rate 116 H Respiratory Rate 24 H Blood Pressure 66/24 L Pulse Oximetry 94 Exam Const: General: acute distress severe and respiratory, diaphoretic, ill appearing, tired appearing and uncomfortable Nutritional Appearance: thin and underweight Orientation/consciousness: confusion Other: Able to lie flat HENMT: General nose exam: Normal nares present and no epistaxis Mouth: Yes moist mucous membranes Eyes: Sclera: sclerae normal Pupils: Equal, rou
[2021-10-11 07:15] LABS: Alveolar/Arterial O2 Gradient 550.3 mmHg; Base Excess ABG -9.1 mEq/l (+/-2.0); Fractional Inspired Oxygen 90 %; HCO3 ABG 19.7 mEq/l (22.0-26.0); PCO2 ABG 56.4 mmHg (35.0-45.0); PO2 FiO2 Ratio Arterial Blood 0.37 %; Total Hemoglobin 12.1 g/dL (12.0-18.0)
[2021-10-11 07:16] LABS: PO2 ABG 33.6 mmHg (80.0-100.0); pH ABG 7.162 (7.350-7.450)
[2021-10-11 07:17] LABS: Oxygen Saturation ABG 49.1 % (95.0-100.0); Oxyhemoglobin 47.1 % THb (90.0-100.0); Site Drawn ARTLINE
[2021-10-11 07:18] LABS: Arterial Blood Gas PEEP 8 cmH2O; Arterial Blood Gas Tidal Volume 380 ml; Arterial Blood Gas Vent Mode CMV; Arterial Blood Gas Ventilator rate 15 /MIN; Device VENTILATOR
[2021-10-11 07:33] LABS: Lactic Acid Reflex 2.1 mmol/L (0.7-2.1)
--- NOTE | 2021-10-11 07:57 | P.PCNCC_ITS ---
Cardiac Cath Procedure Note Date of procedure:: 10/11/21 Performing physician:: Hans Pedroza MD Assessment and Plan Additional Plan PROCEDURE 1. Coronary angiogram 2. Aortogram 3. Emergency ALEX INDICATION Acute resp failure and EKG concerning fo STEMI HISTORY 81 Yrs old female with HX of cardiac surgery (unkown at presentation) and EKG concern for ACS PROCEDURE DETAILS Consent obtained and access site prepped and draped in sterile fashion Time out was done Sedation was done with versed 2 mg and fentanyl 100 mcg with continuos monitoring and supervision by myself and RN Start Time for sedation 05:59 and stop is 6:24 Access Obtained in left SAP BPC DEVELOPER artery with modified Seldinger technique (RCFA was charissa diseased) Coronary angiogram was done using JL4 and JR4 HEMODYNAMICS Aorta: 90/70 valve not crossed CORONARY ANGIOGRAM Left main: bifrucates into LAD and LCX LAD: large vessel that gives diagonal branches, no obstructive disease LCX: Non dominant vessel that gives OM branches, no obstructive disease RCA: Dominant vessel that gives PDA and rPL,no obstructive disease Fluoroscopy of valve Mechanical AV and one leaflet is not visible or mobile Aortogram: Sever AI noted COMPLICATION: None CONCLUSION Cardiogenic shock secondary to mechanical valve malfunction ALEX was done emergently in labels molder after intubation was done (she was in respiratory distress) RECOMMENDATION Discussed finding of cardiogenic shock and mechanical valve malfunction in this case with Cardiac surgeons Dr Wolf in [facility] and Dr Pierce in [employer]. They commented that case not candidate for emergency surgery and prognosis is grim. Recommendation to give tPA. I couldn't reach family members to find contra-indications for tPA, but because current situation is emergency and she is not candidate for emergency surgery, she is left with only option is tPA. she is in profound shock and resp failure and heparin will not be effective. Her INR is subtherapeutic and reportedly she was acutly ill today, so she may have valve thrombosis. After furtehr discussion with surgery team and dr Cochran in [place] to proceed with reduced dose tPA 20 min bolus then 30 mg over 3 hours, followed by heparin infusion no bolus. Check fibrinogen and coagulaiton profile. Cross match and hold 2 unit of blood. Sheaths sutured in place and not to be removed for 24 hours. PPI
[2021-10-11] MEDS: NOREPINEPHRINE 8 MG/D5W 250 ML 8 MG/250 ML BAG 18.75 MG IV CONT (08:15)
--- NOTE | 2021-10-11 08:15 | PC.NURSE ---
This patient, Priti Jaramillo, was admitted to Intensive Care Unit-3. Patient/family oriented to hospital policies and general routines including ID bracelet, bed and alarms, visiting hours, pain management, procedures, bathroom and other care routines, personal items, smoking policy, room service/diet, and visiting hours. Information on how to activate the Rapid Response Team has been discussed. Patient/Family are encouraged to report perceived risks to care and to ask questions if they do not understand what they are told or what they should do.
[2021-10-11 08:30] LABS: Alveolar/Arterial O2 Gradient 565.8 mmHg; Base Excess ABG -9.7 mEq/l (+/-2.0); Carboxyhemoglobin 0.3 % THb (0-2.0); Fractional Inspired Oxygen 100 %; HCO3 ABG 17.2 mEq/l (22.0-26.0); Methemoglobin ABG 0.4 %THb (0-1.5); Oxygen Content ABG 17.8 %vol (16.0-22.0); Oxyhemoglobin 95.7 % THb (90.0-100.0); PCO2 ABG 41.4 mmHg (35.0-45.0); PO2 ABG 105.8 mmHg (80.0-100.0); PO2 FiO2 Ratio Arterial Blood 1.06 %; Reduced Hemoglobin 3.6 %THb (0-5.0); Total Hemoglobin 13.1 g/dL (12.0-18.0)
[2021-10-11 08:31] LABS: Device VENTILATOR; Site Drawn ARTLINE; pH ABG 7.237 (7.350-7.450)
[2021-10-11 08:32] LABS: Arterial Blood Gas PEEP 8 cmH2O; Arterial Blood Gas Tidal Volume 380 ml; Arterial Blood Gas Vent Mode CMV; Arterial Blood Gas Ventilator rate 24 /MIN
--- NOTE | 2021-10-11 08:46 | WPDCNINT ---
Assessment and Plan Assessment and plan (1) Acute respiratory failure: Code(s): J96.00 - Acute respiratory failure, unspecified whether with hypoxia or hypercapnia Status: Acute Assessment and Plan: Acute respiratory failure likely related to severe aortic insufficiency and pulmonary edema -patient was intubated in the cardiac cardiac cath lab manager on 10/11/2021 -remains on CMV mode of ventilation, decreased tidal volumes to avoid volume trauma -increased PEEP to 8, currently on 100% FiO2, will wean FiO2 to maintain O2 sats greater than 92% (2) Severe aortic insufficiency: Code(s): I35.1 - Nonrheumatic aortic (valve) insufficiency Status: Acute Assessment and Plan: ALEX in the cardiac cardiac cath lab manager showed severe aortic insufficiency. Fluoroscopy of the valve: Mechanical aortic valve with 1 leaflet not visible or mobile. Patient was on Coumadin at home with subtherapeutic INR, The thought process was that this could be related to thrombus around the mechanical valve causing severe AI. The print line tailer discussed the case with CT surgeons at [facility] who recommended giving tPA. Forming Machine Tender ordered the tPA bolus and the drip. -will type and cross the blood -check DIC panel -will start Protonix IV q.12 hours as patient could have risk of GI bleeding secondary to tPA -patient will be transferred to a tertiary care center for higher level of care (3) Pulmonary edema: Code(s): J81.1 - Chronic pulmonary edema Status: Acute Assessment and Plan: Likely related to severe aortic insufficiency, patient also received 2 L of IV fluid bolus, will hold additional IV fluids at this time -patient is intubated, peep of 8, continue to monitor closely (4) Chest pain: Qualifiers: Chest pain type: other chest pain Qualified Code(s): R07.89 - Other chest pain Code(s): R07.9 - Chest pain, unspecified Status: Acute Assessment and Plan: Patient presented with chest pain radiating to the left arm along with shortness of breath, diaphoresis and nausea. EKG she was concerning for coronary artery disease and patient was taken to the cardiac cardiac cath lab manager point did not show any obstructive coronary disease. Additional Plan Forming Machine Tender discussed with the son, John Rosen, who stated that patient's print line tailer Dr. Anil Matthew was with the [facility] at [facility]. The son wanted the print line tailer to discuss the case with her print line tailer before sending her to any other hospital. The print line tailer has left a message with the doctor's office. Patient also has a bed at [facility], which the currently holding till they get hold of the patient's print line tailer at [facility] Discussed with Dr. Pedroza and Dr. Cochran Code status: Full code Critical care time spent: 55 minutes This dictation may have been done utilizing a voice recognition system. Attempts have been made to correct errors. However, there may be uncorrected grammatical, spelling, and recognition errors present. Due to a high probability of clinically significant, life threatening deterioration, the patient required my highest level of preparedness to intervene emergently and I personally spent this critical care time directly and personally managing the patient. This critical care time included obtaining a history; examining the patient; pulse oximetry; ordering and review of studies; arranging urgent treatment with development of a management plan; evaluation of patient's response to treatment; frequent reassessment; and discussions with other providers. It was exclusive of separately billable procedures and treating other patients and teaching time. Please see Assessment and Plan section and the rest of the note for further information on patient assessment and treatment Workers' Compensation Mediator Consult Note Consult date: 10/11/21 Time Seen: 07:32 Reason for consult: Cardiogenic shock, amor
[2021-10-11 08:47] LABS: EDCOVIDSCREEN Negative (Negative)
[2021-10-11] MEDS: SODIUM BICARBONATE 8.4% 50 MEQ/50 ML SYRINGE IV PUSH (08:51)
[2021-10-11] MEDS: PANTOPRAZOLE SODIUM IV 40 MG VIAL IV PUSH (08:58)
[2021-10-11 09:19] LABS: Mean Platelet Volume 9.6 fl (7.4-10.4); Platelet Count Result 272 k/mm3 (150-375)
[2021-10-11 09:23] LABS: Magnesium 1.7 mg/dL (1.6-2.3)
[2021-10-11 10:21] LABS: Reflex Lactic Acid Yes or No Add Lactic
[2021-10-11 10:36] LABS: INR 1.2; Partial Thromboplastin Time 41.4 SECONDS (22.3-36.8); Prothrombin Time 14.9 Seconds (11.1-14.7)
[2021-10-11 10:37] LABS: Fibrinogen 289 mg/dl (215-510)
[2021-10-11] MEDS: fentaNYL CITRATE INJ (*CRX) 100 MCG/2 ML VIAL 25 MCG IV PUSH (10:53)
[2021-10-11] MEDS: FENTANYL 2,500MCG/NS250ML(*CRX 2,500 MCG/250 ML BAG IV CONT (10:53)
[2021-10-11 10:56] LABS: Lactic Acid 1.7 mmol/L (0.7-2.1)
--- NOTE | 2021-10-11 12:00 | PC.NURSE ---
belongings sent home with son John
[2021-10-11] MEDS: IPRATROPIUM BR 0.02% INH SOLN 0.5 MG/2.5 ML VIAL INHALATION (14:22)
[2021-10-11] MEDS: ALBUTEROL SULFATE NEB 2.5 MG/0.5 ML INH INHALATION (14:22)
[2021-10-13 15:40] LABS: Activated Clotting Time 166 SEC (74-137)
--- NOTE | 2021-11-09 12:41 | PM.TDS ---
Transfer Discharge Sum: Prov Provider Date of admission: 10/11/21 06:06 Primary care physician: Lewis Webb, DO Admitting clinician: Hans Pedroza MD Consults: 10/11/21 Consult to Physician Routine Comment: Consulting Provider: Rose Armendariz Reason for consultation: icu admission Has provider been notified: Yes DS: Admitting Diagnosis Discharge Date 10/11/21 Admitting Diagnosis Dysfunctional prosthetic aortic valve DS: Discharge Diagnosis Discharge Diagnosis (1) Severe aortic insufficiency: Code(s): I35.1 - Nonrheumatic aortic (valve) insufficiency Status: Acute Transfer Discharge Sum: Med Medications Active and Home Medications: Home Medications albuterol sulfate 2 puff INHALATION QID PRN #6.7 g 08/23/21 [Rx] evolocumab [Repatha Pushtronex] mg SUBCUT 10/11/21 [History] ezetimibe mg 10/11/21 [History] nwqavkilluc-fktsffdqy-mgyaafao [Trelegy Ellipta] INHALATION 10/11/21 [History] furosemide 10/11/21 [History] meclizine mg 10/11/21 [History] warfarin 10/11/21 [History] Transfer Discharge Sum: Hosp Hospital Course Hospital course: Priti Jaramillo is a 81 year old female who presented to the hospital with respiratory distress. The physician grease monkey for our practice was consulted with acute pulmonary edema there was concern about the possibility of acute [place]/acute coronary syndrome. The patient had a history of mechanical aortic valve replacement in the remote past. She had been prescribed warfarin but potentially had not been taking as INR was normal on admission. The catheterization did not show any evidence of coronary disease but there did appear to be severe aortic regurgitation. A transesophageal echo was done in the slab tripper which appeared to show thrombus involving the a discs of the mechanical aortic valve holding 1 of the discs in the open position resulting in severe aortic valve regurgitation. The patient was transferred from the cardiac catheterization lab to the ICU at [place] and plans were then made to transfer her for higher level of care in the event that surgical intervention would be necessary for this. As a lifesaving measure reduced dose tPA was administered at [facility] before she was transferred to [place]. Further workup and treatment of course will be determined after based on the clinical course at [facility]. Time Spent with Patient Time attestation: Total time spent providing and/or coordinating transfer services: Total time spent: Greater than 30 minutes Exam Narrative: Elderly intubated lady Const: Other: Normocephalic atraumatic Eyes: Sclera: sclerae normal Neck: Other: Neck is supple no obvious JVD no carotid bruits Chest: Other: Coarse breath sounds noted bilaterally Cardio: Other: PMI is enlarged diastolic decrescendo murmur audible at the apex GI: Other: Abdomen soft nontender normoactive bowel sounds Skin: General skin exam: normal color
== END 2021-10-11 15:03 | disposition short-term general hospital (02) | DRG 286 ==
LOC: ANHED 05:04 → ANHCATHLAB 05:07 → ANHICU 07:11
PROVIDERS: Admitting Provider Internal Medicine Interventional Cardiology; Emergency Provider Emergency Medicine; PCP Student in an Organized Health Care Education/Training Program; Visit Provider Internal Medicine
PROC: 4A023N7 Measurement of Cardiac Sampling and Pressure, Left Heart, Percutaneous Approach (ICD-10-PCS; CPT 93454; principal; 2021-10-11 05:30)
PROC: 4A023N7 Measurement of Cardiac Sampling and Pressure, Left Heart, Percutaneous Approach (ICD-10-PCS; CPT 93567; 2021-10-11 05:30)
PROC: 4A023N7 Measurement of Cardiac Sampling and Pressure, Left Heart, Percutaneous Approach (ICD-10-PCS; CPT 36140; 2021-10-11 05:30)
PROC: 4A023N7 Measurement of Cardiac Sampling and Pressure, Left Heart, Percutaneous Approach (ICD-10-PCS; CPT 93312; 2021-10-11 05:30)
DX: T82.867A Thrombosis due to cardiac prosthetic devices, implants and grafts, initial encounter (principal); J96.00 Acute respiratory failure, unspecified whether with hypoxia or hypercapnia; R57.0 Cardiogenic shock; J81.1 Chronic pulmonary edema; Y82.8 Other medical devices associated with adverse incidents; Y92.9 Unspecified place or not applicable; I35.1 Nonrheumatic aortic (valve) insufficiency; Z20.822 Contact with and (suspected) exposure to COVID-19; Z95.1 Presence of aortocoronary bypass graft; I95.9 Hypotension, unspecified; Z95.0 Presence of cardiac pacemaker; I73.9 Peripheral vascular disease, unspecified; Z79.01 Long term (current) use of anticoagulants
CPT/HCPCS: 36140; 36415; 36600; 71045; 80053; 82375; 82805; 83050; 83605; 83690; 83735; 84484; 85025; 85049; 85384; 85610; 85730; 86850; 86900; 86901; 87426; 93005; 93312; 93320; 93325; 93454; 93567; 94002; 94640; 96360; 99285; A9270; C1887; C1894; C9113; C9803; J0171; J0330; J1644; J1940; J2250; J2310; J2405; J2997; J3010; J7030; J7040; J7050